=== PATIENT | female | born 1965 | race Caucasian/White ===

== ENCOUNTER → 2017-12-28 | Outpatient (CLI) | payer OTHER | LOC: LAB SHORT 17:51 → LAB 17:51 | DX: L73.9 Follicular disorder, unspecified (principal) | CPT/HCPCS: 87070; 87205 ==

== ENCOUNTER 2018-06-15 08:45 | Day surgery (SDC) | payer OTHER ==
[~2018-06-15] VITALS: Ht 162.6 cm; Wt 102.9 kg
[~2018-06-15 08:45] MED LIST: ACCURETIC PO; ATEN25 PO; Alora1 EAC1 TD; CYCL10 PO; DICL75ER PO; Elmiron100 MG; KETO10 PO; MORP15ER PO; Mirapex0.25 MG; NORT75 PO; RABEPRAZOLE SOD20 MG PO; Synthroid175 MCG PO; TAMS.4ER PO
[2018-06-15] MEDS ORDERED: Zofran4 MG PO (09:07)
[2018-06-15] MEDS ORDERED: MOMENI (09:07)
[2018-06-15] MEDS ORDERED: MIRALAX17 GM (09:08)
[2018-06-15] MEDS ORDERED: Micro-K10 MEQ PO (09:10)
== END 2018-06-15 10:35 | disposition home or self-care (01) ==
LOC: ORSCSDS 08:45
PROVIDERS: Internal Medicine Gastroenterology
PROC: 0DBH8ZX Excision of Cecum, Via Natural or Artificial Opening Endoscopic, Diagnostic (ICD-10-PCS; principal; 2018-06-15 10:15)
DX: K59.00 Constipation, unspecified (principal); D12.0 Benign neoplasm of cecum; K57.30 Diverticulosis of large intestine without perforation or abscess without bleeding; K21.9 Gastro-esophageal reflux disease without esophagitis; K64.4 Residual hemorrhoidal skin tags; R10.13 Epigastric pain; E78.00 Pure hypercholesterolemia, unspecified; K58.9 Irritable bowel syndrome, unspecified; E66.9 Obesity, unspecified; Z68.38 Body mass index [BMI] 38.0-38.9, adult; Z79.899 Other long term (current) drug therapy
CPT/HCPCS: 88305; J7120

== ENCOUNTER → 2019-04-26 | Outpatient (CLI) | payer OTHER ==
[~2019-04-26] MED LIST changes: +MIRALAX17 GM; +MOMENI; +Micro-K10 MEQ PO; +Zofran4 MG PO
== END | disposition home or self-care (01) ==
LOC: LAB SHORT 09:22 → LAB 09:22
DX: L08.0 Pyoderma (principal)
CPT/HCPCS: 87070; 87205

== ENCOUNTER → 2019-11-20 | Outpatient (CLI) | payer BC | END | disposition home or self-care (01) | LOC: LAB EV 13:34 → LAB SHORT 13:34 | DX: R05 Cough (principal); Z20.828 Contact with and (suspected) exposure to other viral communicable diseases | CPT/HCPCS: U0003 ==